=== PATIENT | female | born 1960 | race Two or more races ===

== ENCOUNTER → 2018-05-16 | Outpatient (CLI) | payer BC ==
[~2018-05-16] MED LIST: AMINOPHYLLINE 250 MG/10 ML VIAL. ONE; REGADENOSON 0.4 MG/5 ML DISP.SYRIN. IV ONE
--- NOTE | 2018-05-16 16:47 | PCVCIMAG ---
APPROVED REPORT Imaging Protocol: Rest Tc-99m/Stress Tc-99m 1 day Study performed: 05/16/2018 09:53:21 Indication: Pre-Operative CV evaluation, Abnormal EKG, LBBB Patient Location: Out-Patient Stress Nurse: Katina Shafer RN, Ashly Tom RN [place] Tech:MICHAEL CappsMT Ht: 5 ft 1 in Wt: 175 lbs BSA: 1.78 m2 HR: 71 bpm BP: 140/62 mmHg BMI: 33.0 Rhythm: Sinus Rhythm, LBBB Medical History Medical History: HTN Medications: Losartan Allergies: No known drug allergies Cardiac Risk Factors: Age Pretest Chest Pain Characteristics: No chest pain Exercise History: Indeterminate Physical Disabilities: Foot pain Resting Data Rest SPECT myocardial perfusion imaging was performed in supine position 45 minutes following the intravenous injection of 10 mCi of Tc-99m Sestamibi. Time of rest injection: 919 Date: 05/16/2018 Administration Route: IV Administration Site: Right AC Pharmacologic Stress Pharmacologic stress test was performed by injecting Regadenoson 0.4 mg IV push over 10-15 seconds immediately followed by the intravenous injection of 32.1 mCi of Tc-99m Sestamibi. Time of stress injection: 1030 Date: 05/16/2018 Administration Route: IV Administration Site: Right AC Gated Stress SPECT was performed 45 minutes after stress injection. The images were gated to evaluate regional wall motion and calculate left ventricular ejection fraction. Stress Test Details Stress Test: Pharmacologic stress testing performed using 0.4 mg of regadenoson per 5 mL given IV over 10 seconds. Reason for pharmacologic stress test: LBBB. Reversal agent Aminophyline 125 mg, given intravenously for headache, nausea. HRMax Heart Rate (APMHR): 162 bpm Resting HR: 71 bpmTarget HR (85% APMHR): 137 bpm Max HR Achieved: 93 bpm % of APMHR: 57 Recovery HR: 90 bpm BP Resting BP: 140/62 mmHg Max BP: 144/68 mmHg Recovery BP: 125/81 mmHg ECG Resting ECG: Sinus Rhythm, LBBB Stress ECG: Sinus Rhythm, LBBB Recovery ECG: Sinus Rhythm, LBBB Clinical Reason for Termination: Completed protocol Stress Symptoms: Nausea, Chest pain, Dyspnea, Headache Exercise duration: 0 min 55 sec Symptoms resolved with aminophylline. Stress ECG Conclusion non diagnostic Study Quality Study: Good Study Data Post stress, the left ventricular ejection was 66%.. SSS: 2 SRS: 4 SDS: 0 TID = 1.04. Perfusion No evidence of stress induced ischemia or prior myocardial infarction. There is a small area of mildly reduced uptake in the mid segment of the anteroseptal wall which is seen on the stress images as well as the resting images likely due to patient's left bundle branch block. Wall Motion Paradoxical septal motion due to left bundle branch block. Nuclear Conclusion No evidence of stress induced ischemia or prior myocardial infarction. There is a small area of mildly reduced uptake in the mid segment of the anteroseptal wall which is seen on the stress images as well as the resting images likely due to patient's left bundle branch block. Post stress, the left ventricular ejection was 66%. No prior study available for comparison. Interpreted by: James Hudson MD Electronically Approved: 05/16/2018 14:25:17 <Conclusion> non diagnostic
== END | disposition home or self-care (01) ==
LOC: PCVCIMAG 08:46
PROVIDERS: ATTEND Internal Medicine Cardiovascular Disease
DX: Z01.810 Encounter for preprocedural cardiovascular examination (principal); I44.7 Left bundle-branch block, unspecified; R94.31 Abnormal electrocardiogram [ECG] [EKG]
CPT/HCPCS: 78452; 93017; A9500; J0280; J2785